=== PATIENT | female | born 1930 | race Caucasian/White ===

== ENCOUNTER 2016-11-14 10:14 | Inpatient (IN) ==
[2016-11-14] MEDS ORDERED: ASPIRIN PO STA (10:21)
[2016-11-14 11:15] LABS: BASO% 0.2 % (0.0-0.8); EOS# 0.19 X1000 (0.0-0.7); HEMATOCRIT 31.9 % (37.0-47.0); IMM GRAN# 0.04 X1000 (0.0-0.04); IMM GRAN% 0.6 % (0.0-0.5); LYMPH# 0.43 X1000 (1.2-3.4); LYMPH% 6.7 % (20.5-51.1); MANUAL DIFF NEEDED? NO; MCH 30.8 PG (27-31); MCHC 31.3 g/dL (33-37); MCV 98.2 FL (81-99); MONO# 0.15 X1000 (0.11-0.59); MONO% 2.3 % (1.7-9.3); MPV 11.4 FL (7.4-10.4); NEUT% 87.2 % (42.2-75.2); PLT 126 X1000 (130-400); RBC 3.25 XMIL (4.2-5.4)
[2016-11-14 11:21] LABS: INR 1.18; PROTIME 12.5 Seconds (9.2-11.7); PTT 23.8 Seconds (22.0-36.0)
[2016-11-14 11:26] LABS: ALBUMIN 3.8 g/dL (3.5-5.0); CALCIUM 9.6 mg/dL (8.8-10.2); MAGNESIUM 1.6 mg/dL (1.5-2.7); POTASSIUM 4.3 mmol/L (3.5-5.1); TOTAL BILIRUBIN 0.8 mg/dL (0.20-1.00)
[2016-11-14] MEDS ORDERED: NS 1,000 ML IV ONE ×3 (11:40→14:49)
[2016-11-14] MEDS ORDERED: LASIX IV ONE (12:07)
--- NOTE | 2016-11-14 13:24 | Diag Imaging Result Document ---
PROCEDURE NAME: CHEST-1 VIEW - 11/14/2016 PORTABLE CHEST: FINDINGS: Compared with 03/24/2016. Central venous catheter remains in place. There is stable cardiomegaly. There are apparent COPD changes. There is no dense consolidation, gross pulmonary edema, substantial pleural effusion, or pneumothorax identified. IMPRESSION: 1. Stable cardiomegaly. 2. Apparent COPD. 3. No other evidence of acute disease.
[2016-11-14] MEDS ORDERED: TYLENOL PO PRN (14:30)
[2016-11-14] MEDS ORDERED: ZOFRAN IV PRN (14:30)
[2016-11-14] MEDS ORDERED: DUONEB (A & A) INH PRN (14:46)
[2016-11-14] MEDS ORDERED: LOVENOX SUBQ SCH (15:00)
[2016-11-14] MEDS ORDERED: PATIENT'S OWN MED OPH SCH (15:00)
[2016-11-14] MEDS: DUONEB (A & A) INH SCH ×2 (15:00→21:07)
[2016-11-14 15:15] LABS: URINE MICRO REVIEW NEEDED? NO; URINE SOURCE CATH
[2016-11-14 15:22] LABS: BILIRUBIN URINE NEGATIVE (NEGATIVE); BLOOD URINE NEGATIVE (NEGATIVE); COLOR YELLOW; GLUCOSE URINE NEGATIVE (NEGATIVE); LEUKOCYTES URINE SMALL (NEGATIVE); NITRITE URINE NEGATIVE (NEGATIVE); PROTEIN URINE 70 mg/dL (NEGATIVE); SP GRAVITY URINE 1.012; TURBIDITY URINE HAZY (CLEAR); UROBILINOGEN URINE NORMAL (NORMAL)
[2016-11-14 15:24] LABS: ALLEN TEST YES; BE -3.6 mmoll (-3.0-3.0); BLOOD TYPE ARTERIAL; DRAW SITE R RADIAL; METHB 1.7 % (0.0-1.5); O2(CT) 15.8 mL/dL (15.0-23.0); PCO2(98.6) 24 mmHg (35-45); PO2(98.6) 74 mmHg (60-100); SAMPLE BLOOD; SAO2 98.6 % (95.0-100.0); THB 11.8 g/dL (11.5-17.4); pH(98.6) 7.49 (7.35-7.45)
[2016-11-14 15:24] LABS: UR EPITHELIAL CELLS <10 /HPF (<10); URINE BACTERIA 4+ /HPF; URINE CULTURE NEEDED? YES; URINE RBC <10 /HPF (<10)
[2016-11-14 15:25] LABS: MODALITY CANNULA
[2016-11-14] MEDS: OXY IR PO PRN ×2 (15:37→23:54)
--- NOTE | 2016-11-14 16:06 | HISTORY AND PHYSICAL ---
CHIEF COMPLAINT: Was really dyspnea. HISTORY OF PRESENT ILLNESS: The patient came in for evaluation. Her daughter is very involved and a very good historian. She states she has been in her usual state. She has been getting her outpatient chemo for her multiple myeloma and she has had treatment this week. Today she was complaining of shortness of breath. She could not get her words out. She just does not feel very comfortable, was just overall very ill appearing. She just could not catch her breath essentially. Again she is currently getting multiple myeloma treatment. She has had the diagnosis for 16 years. She has been getting intermittent chemo for the last several years and I think she is about to enter a study for treatment. There has not been any other major changes in her case now. Workup in the ER revealed BUN, creatinine of 40, 1.3, clinically appear dry but her BNP was elevated. Hemoglobin and hematocrit is 10 and 31 with platelets of 126,000. Her coagulations were negative including a negative D-dimer. Her chest x-ray was felt to be overall negative as well, COPD, cardiomegaly but nothing much else in that. PAST MEDICAL HISTORY: 1. Again the multiple myeloma. She has been getting treatment intermittently. 2. Paroxysmal atrial fibrillation. She is status post ablation. She is not on anticoagulation due to concern over bleeding risk with her concurrent diagnosis of pneumonia. 3. Hypothyroidism. 4. Hypertension. 5. Chronic pain disorder. PAST SURGICAL HISTORY: 1. She has had a hysterectomy. 2. Port placement. 3. She has had ablation. FAMILY HISTORY: Is positive for CAD, diabetes, colon cancer. ALLERGIES: Acetaminophen, hydrocodone, adhesive tape, I think she is allergic to [place] not Tylenol per se. REVIEW OF SYSTEMS: Otherwise negative times a 10 point review of systems. All other systems reviewed and are negative. MEDICATION LIST: Amlodipine 5 daily, docusate 300 daily, eye lubricant daily, fenofibrate 160 daily, iron 240 b.i.d., folic acid 400 daily, Lasix 40 daily, Atrovent, Synthroid 150 daily, Cozaar 50 daily, oxycodone 5 q.8, MiraLAX 17 daily, Micro-K 20 daily, Spiriva 18 daily, multivitamin daily. PHYSICAL EXAMINATION: VITAL SIGNS: Blood pressure is currently 131/85, heart rate of 89, respiratory 28, temperature degrees 99.2, 95% on 2 L. GENERAL: A well-developed female, appears to have increased work of breathing. HEENT: Patient presents with . CARDIOVASCULAR: Tachy. PULMONARY: Diminished at the bases but no rales or wheezing. GI: Soft, nontender, nondistended. Bowel sounds are positive. EXTREMITIES: No clubbing or cyanosis. LYMPHATICS: No peripheral edema. NEUROLOGICAL: Nonfocal. LABORATORY DATA: BUN and creatinine 40 and 1.3. D-dimer was negative. ASSESSMENT: An 86-year-old female who presents with shortness of breath. We are going to try to get her tuned up here a little bit. It is unclear what her 1st issue is although I think just looking at her she has respiratory distress seems to be the predominant issue. 1. Pulmonary. We will better evaluate for hypoxia with a blood gas. I am going to do a noncontrast CT of her chest. Despite her negative D-dimer I think I am going to get Dopplers just because she is at risk for DVT and we will evaluate accordingly. 2. Multiple myeloma aware. Will continue to monitor. Consult Dr. Trujillo. 3. Paroxysmal atrial fibrillation. She appears to be normal sinus rhythm so I am not really sure what that has to do with her current issues. Her last echocardiogram was in 2014 here so she may need to get another study and her ejection fraction was normal at that time. Her BNP is very elevated today and it is a difficult process because her oral mucous membranes are dry but her BNP is elevated. She does not have pulmonary edema at that time. We also going to pursue echocardiogram just to better evaluate for any heart failure issues and check serial cardiac enzymes. DISPOSITION: Pending her above workup. cc: Osmel Escalera MD
--- NOTE | 2016-11-14 16:29 | Diag Imaging Result Document ---
PROCEDURE NAME: CT THORAX W/O CONTRAST - 11/14/2016 CT THORAX WITHOUT CONTRAST: FINDINGS: No contrast administered per request of the referring provider. A dose reduction protocol was used. No comparison CT thorax is available. There is cardiomegaly. There are right lower lobe calcified granulomas and calcified right hilar mediastinal lymph nodes from old granulomatous disease. There is apparent mild scarring at the mid perihilar mid to upper right thorax. There is no consolidation or pneumothorax identified. There is no substantial pleural effusion identified. There are no emphysematous bulla identified. There are no abnormally enlarged mediastinal lymph nodes identified. There is tortuosity of the descending aorta noted. Included sections of upper abdomen show mildly prominent spleen, although the entire spleen is not included on the exam. There are multiple splenic granulomas from old granulomatous disease noted. IMPRESSION: 1. Cardiomegaly. Apparent mild scarring at perihilar mid to upper thorax on the right. 2. No pneumonia. No pneumothorax. No substantial pleural effusion. 3. Mild prominence of the visualized portion of the spleen.
[2016-11-14] MEDS: COLACE PO SCH (22:07)
[2016-11-14] MEDS: FERGON PO SCH (22:07)
[2016-11-14] MEDS ORDERED: VANCOMYCIN IV PER PHARMACY MISC SCH (22:45)
[2016-11-14] MEDS ORDERED: VANCOMYCIN 1,650 MG in NS 250 ML IV ONE (23:00)
[2016-11-15] MEDS: DUONEB (A & A) INH SCH ×4 (03:39→21:34)
--- NOTE | 2016-11-15 05:36 | EKG Report ---
Test Performed on : 11/14/2016 3:07:40 PM Test Reason : dyspnea Blood Pressure : / mmHG Vent. Rate : 084 BPM Atrial Rate : 084 BPM P-R Int : 234 ms QRS Dur : 112 ms QT Int : 406 ms P-R-T Axes : 072 -12 027 degrees QTc Int : 479 ms Sinus rhythm. with 1st degree AV block. Incomplete right bundle branch block Borderline ECG When compared with ECG of 14-NOV-2016 10:24, (Unconfirmed) premature ventricular complexes. are no longer present premature supraventricular complexes. are no longer present T wave inversion no longer evident in Inferior leads T wave inversion no longer evident in Anterolateral leads QT has lengthened Confirmed by Paulie NUNEZ, Red Rothman ([id number]) on 11/15/2016 9:00:37 AM
--- NOTE | 2016-11-15 05:51 | EKG Report ---
Test Performed on : 11/14/2016 10:24:01 AM Test Reason : Re-Ordered/CP Blood Pressure : / mmHG Vent. Rate : 108 BPM Atrial Rate : 108 BPM P-R Int : 322 ms QRS Dur : 102 ms QT Int : 308 ms P-R-T Axes : 064 -04 258 degrees QTc Int : 412 ms Sinus tachycardia. with 1st degree AV block. with premature supraventricular complexes. and with occ asional premature ventricular complexes. RSR' or QR pattern in V1 suggests right ventricular conduction delay ST \T\ T wave abnormality, consider inferior ischemia ST \T\ T wave abnormality, consider anterolateral ischemia Abnormal ECG When compared with ECG of 27-JUL-2016 13:55, Significant changes have occurred Unconfirmed Result
[2016-11-15 06:25] LABS: CALCIUM 8.1 mg/dL (8.8-10.2); POTASSIUM 3.8 mmol/L (3.5-5.1)
[2016-11-15 06:35] LABS: HEMATOCRIT 24.5 % (37.0-47.0); HEMOGLOBIN 7.8 g/dL (12.0-16.0); MCH 31.2 PG (27-31); MCHC 31.8 g/dL (33-37); MPV 11.7 FL (7.4-10.4); RBC 2.5 XMIL (4.2-5.4)
[2016-11-15] MEDS ORDERED: COZAAR PO SCH (09:00)
[2016-11-15] MEDS: MIRALAX PO SCH (09:00)
[2016-11-15] MEDS ORDERED: LASIX PO SCH (09:00)
[2016-11-15] MEDS: LOFIBRA PO SCH (09:01)
[2016-11-15] MEDS: SYNTHROID PO SCH (09:01)
[2016-11-15] MEDS: FERGON PO SCH ×2 (09:01→22:22)
[2016-11-15] MEDS: FOLIC ACID PO SCH (09:02)
[2016-11-15] MEDS: OCUVITE LUTEIN & ZEAXANTHIN PO SCH (09:02)
[2016-11-15] MEDS: NORVASC PO SCH (09:02)
[2016-11-15] MEDS: OXY IR PO PRN ×2 (09:15→19:46)
[2016-11-15 13:37] LABS: IRON SATURATION 9 %; TIBC 240 ug/dL; TOTAL IRON 21 ug/dL (49-151); UNBOUND IRON 219 ug/dL (112-346)
[2016-11-15] MEDS ORDERED: ROCEPHIN 1 GM/NS 1 GM/50 ML IVPB IV SCH (14:45)
[2016-11-15] MEDS: MORPHINE IV PRN ×2 (15:05→22:22)
--- NOTE | 2016-11-15 16:12 | PROGRESS NOTE ---
DATE: 11/15/2016 SUBJECTIVE: Ms. Bains is an 86-year-old female with a history of multiple myeloma, PAF, and others, who was admitted yesterday for worsening dyspnea and overall weakness. A chest CT done yesterday was unrevealing, overnight her hemoglobin and hematocrit has dropped from 10 to 7.8, and her renal function has worsened slightly. She also was noted to have gram-negative bacteria in her urine and gram-positive bacteria in her blood. Appropriate antibiotics have been started. Subjectively, she states that her lower back is hurting quite a bit and she is continue to have dyspnea, she denies any new. On physical exam she is quite a bit dyspneic. Multiple studies have been ordered and are currently pending. Her vital signs are stable. No acute events. She has been seen by Dr. Trujillo, her oncologist. OBJECTIVE: VITAL SIGNS: Blood pressure 133/51. Heart rate 56. Respiratory rate 17. O2 sat 100% on 3 liters nasal cannula. Temperature 98.5. GENERAL: This is an overweight, 86-year-old female lying on the hospital bed, mildly dyspneic. HEENT: Head is atraumatic and normocephalic. Pupils are equal, round, and reactive to light. Conjunctivae pale. Oral mucosa is dry. Oropharynx is clear. There is no JVD. CHEST: Clear to auscultation. Chest rises symmetrically. GI: Soft, nondistended, nontender. Bowel sounds positive. EXTREMITIES: No edema. Pulses are palpable. LABORATORY: WBC 8.57, hemoglobin 7.8, hematocrit 24.5, platelet count 111. Sodium 138, potassium 3.8, chloride 103, CO2 18, anion gap 17, BUN 40, creatinine 1.5, glucose 90, calcium 8.1. Iron 21, TIBC 240, percent sat 9, unsaturated iron binding 219, ferritin 929. Troponin negative. Blood cultures positive, gram-positive cocci and urine is gram-negative rods. ASSESSMENT AN PLAN: 1. Dyspnea: Likely multifactorial, CT of the chest did not show anything acute. We are checking echocardiogram and also giving her blood for her anemia. We will treat her underlying metabolic issues and see if this helps her with her breathing, she is maintaining adequate O2 sats. 2. Worsening anemia: Presumed gastrointestinal loss in nature, oncology is following, but we are also going to consult with gastroenterology and transfuse her 1 unit for now. 3. Gram-positive cocci bacteremia: Source unknown at this time, most obvious source would be her port. We are also going to check a lumbar spine CT as she is complaining of fairly severe lower back pain, which is worse than her normal pain. Dr. Munoz has been consulted and we will continue vancomycin and Rocephin. 4. Urinary tract infection: Rocephin has been added. 5. Multiple myeloma: Per Dr. Yazmin Trujillo, appreciate the input. 6. Back pain: We have added IV pain medication and we are going to check a CT of the lumbar spine to see if there is any abscess, et cetera. 7. YOLANDA: Likely volume mediated. Will continue with IV fluids and discontinue any nephrotoxic medications. If no improvement in the morning we will pursue more extensive work-up. 8. Deep venous thrombosis prophylaxis: We will change to SCDs in light of her worsening anemia and presumed gastrointestinal bleed. Of note, the patient has changed her DNR status to DNR level 1. Dictated by JASVIR Pedro for Osmel Escalera MD cc: JASVIR Pedro MD pt examined, port is likely source, per family they have been difficulty with the port; and have had to use activase recently, so there is suspicion of port infection, will await cultures and repeat them APENOT MTDD
[2016-11-15] MEDS ORDERED: NS 500 ML ONE (18:24)
[2016-11-15] MEDS: NS 500 ML IV SCH (18:35)
[2016-11-15] MEDS ORDERED: CUBICIN (FOR INPATIENT USE) 500 MG in NS 100 ML IV SCH (20:00)
--- NOTE | 2016-11-15 21:19 | ECHO REPORT ---
ORDER DATE: 11/15/2016 INTERPRETING PHYSICIAN: Dr. Velasquez REQUESTING PHYSICIAN: CLINICAL INDICATIONS: An 86-year-old female with stroke, hypertension, atrial tachycardia. M-MODE MEASUREMENTS: Right ventricle: 4.0 cm. Left ventricle end diastole: 5.4 cm. Left ventricle end systole: 3.5 cm. Posterior wall: 0.8 cm. Interventricular septum: 1.0 cm. Left atrium: 4.8 cm. Aortic root: 3.7 cm. SUMMARY OF 2-DIMENSIONAL IMAGING: The left ventricle is normal in size and function. Ejection fraction estimated at 60-65%. The right ventricle is significantly enlarged and it shows mildly decreased systolic function. The tricuspid valve shows a moderate to moderately severe degree of regurgitation. The inferior vena cava is borderline enlarged. The estimated pulmonary artery systolic pressure is in the range of 67-72 mmHg, indicating significant pulmonary hypertension. The pulmonic valve shows a mild degree of regurgitation. The pulmonary diastolic pressure is estimated at 22 mmHg. The mitral valve shows a mild degree of regurgitation. Pulse wave Doppler of mitral inflow is normal. Tissue Doppler of septal and lateral mitral annulus averages 7 cm per second. There is no definite significant diastolic dysfunction. Pulse wave Doppler of pulmonary venous flow is normal. The aortic valve has 3 cusps. Color flow mapping indicates a mild degree of aortic regurgitation. There is no aortic stenosis. There is no pericardial effusion, masses or thrombus. The left atrium appears to be significantly enlarged. The right atrium is also significantly enlarged. IMPRESSION: In summary, this study shows: 1. No left ventricular systolic function. 2. Moderately to significantly enlarged right ventricle. Mildly decreased function. 3. Biatrial enlargement of a moderate to significant degree. 4. Mild degree of aortic and mitral regurgitation. 5. No diastolic dysfunction. 6. Moderate pulmonary hypertension estimated to be in the range of 72/22 mmHg. 7. There is a moderately severe degree of tricuspid regurgitation and a mild degree of pulmonic regurgitation. Clinical correlation recommended. cc: Norberto Velasquez MD
--- NOTE | 2016-11-15 21:43 | CONSULTATION ---
DATE OF CONSULTATION: 11/15/2016 REASON FOR CONSULTATION: Patient known multiple myeloma. HISTORY OF PRESENT ILLNESS: Ms. Bains is an 86-year-old female, who is known to us as we are currently treating her for multiple myeloma, who presented to [facility] Emergency Department complaining of new onset shortness of breath, as well as the generally feeling unwell. The patient is currently receiving Kyprolis with us at [facility]. Her last dose was 11/11/2016. She has recently had some slow progression of her disease and there are plans to try to initiate Pomalyst here in the future. Patient is not currently taking the Pomalyst. The patient has multiple medical problems. She has had a couple different lines of therapy prior to her current Kyprolis. Patient does have some medication intolerance to previous treatments. At this time, the patient is lying in hospital bed with her son by the bedside. She is in no acute distress. PAST MEDICAL HISTORY: 1. Multiple myeloma, currently on Kyprolis. 2. Paroxysmal atrial fibrillation, status post ablation. 3. Hypothyroidism. 4. Hypertension. 5. Chronic pain. 6. Anxiety and depression. PAST SURGICAL HISTORY: 1. Patient status post hysterectomy. 2. Status post port placement on the right. 3. Previous ablation, as per above. REVIEW OF SYSTEMS: As per the HPI. All else is either negative or noncontributory. FAMILY HISTORY: Positive for coronary artery disease, diabetes, and colon cancer. PHYSICAL EXAMINATION: Vital Signs: Temperature 98.5 degrees, heart rate 69, respirations 18, blood pressure 133/51. O2 saturations at 99% on 3 L nasal cannula. General: Elderly female, lying in the hospital bed in no acute distress. Her son is by the bedside. Head: Appears to be normocephalic, atraumatic. Eyes: Pupils equal, round, and reactive. Ears, nose, throat, neck, and mouth: Oral mucosa appears to be normal. Trachea is midline. Gross auditory acuity is intact. Cardiovascular: S1-S2 heard. Regular rate and rhythm. Respiratory: Coarse breath sounds bilaterally, but otherwise clear to auscultation. Gastrointestinal: Abdomen is soft and nondistended. Positive bowel sounds. Musculoskeletal: No obvious bony abnormalities noted. Extremities: Patient does not have any bilateral lower extremity edema. No upper extremity edema as well. Neurologic: Patient is alert and oriented. No focal motor deficits are noted. ASSESSMENT AND PLAN: 1. Multiple myeloma. The patient is currently receiving Kyprolis, with her last dose being on 11/11/2016. There is discussion of initiating Pomalyst, but this has of yet to be started. Treatment will be on hold while the patient's current issues resolve. 2. Anemia. This is worse today. Her hemoglobin is down to 7.8. She has symptoms. We will go ahead and give her 1 unit of packed red blood cells today. Risks, benefits, and alternatives were discussed with the patient and she agrees to proceed. The patient's iron and occult stool have already been ordered to be checked. 3. Shortness of breath. CT scan was negative. Electrocardiogram was normal sinus rhythm. Continue current management. Continue current workup. Bilateral lower extremity Doppler's are currently pending, as is the patient's echocardiogram. 4. Pain. Continue current management as per the hospitalist. She is taking oxycodone IR. I want to thank you for this consult and allowing us to participate in Ms. Bains's care. We will continue to follow along and adjust our treatment plan per her hospital course. Dictated by LEANNA Calderon for Yazmin Trujillo MD cc: Yazmin Trujillo MD
[2016-11-15] MEDS: MAXIPIME 1 GM/NS 1 GM/50 ML IVPB IV SCH (22:17)
[2016-11-15] MEDS: COLACE PO SCH (22:22)
--- NOTE | 2016-11-15 23:11 | CONSULTATION ---
DATE OF CONSULTATION: 11/15/2016 CONCLUSION: The patient has a gram-positive coccal bacteremia. Because both of the blood cultures are positive, to me that means that she truly has a bacteremia and not a contaminated culture. I agree with Dr. Escalera, that the source of this may be the patient's Port-A-Cath. Patient also has a urinary tract infection, but whether it or the bacteremia or both contributed to the patient's reason for coming in the hospital with nausea, shaking and dyspnea is responsible for it, is uncertain to me at this time. The patient may have an immunoglobulin deficiency, which can be seen with multiple myeloma. RECOMMENDATIONS: I have switched the patient from vancomycin to daptomycin because the patient has some renal insufficiency, and she also has decreased hearing. Also, I have switched the patient from Rocephin to cefepime. I have ordered an echocardiogram to look for the possibility of vegetations. I have ordered immunoglobulin levels. DISCUSSION: The patient had a 2-day history of nausea and shaking and dyspneic. She was eventually admitted to the hospital. Both blood cultures are growing gram positive cocci, and the urine is growing a gram-negative sujey. The patient's creatinine is 1.5. The GFR is 33. Liver function studies are normal. CBC shows a white count of 8,570, hemoglobin 7.8, and platelet count of 110,000. The patient now is feeling much better. She is not having nausea, and she is not shaking, and she is less dyspneic. The patient's CT scan of the chest showed no pneumonia. There was some mild scarring on the right side. Also, there was some mild prominence of the spleen. PAST MEDICAL HISTORY/REVIEW OF SYSTEMS: Eyes and ears: The patient has decreased hearing and vision. Neck: No stiffness. Respiratory: She was having dyspnea before coming in, but that is getting better. Cardiovascular: No chest pain or palpitations. GI: The patient was nauseated, but she really did not vomit. She was not having diarrhea. Genitourinary: No dysuria or flank pain. Endocrine: The patient does not have diabetes or thyroid disease. The remainder of the patient's review of systems was completed and was negative. 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 She has had a hysterectomy. PREVIOUS HOSPITALIZATIONS AND OPERATIONS: She has had labor and deliveries, 3 miscarriages, a hysterectomy, parathyroidectomy, bilateral carpal tunnel surgery, bilateral foot surgery, placement of a left-sided Port-A-Cath and placement of a cardiac loop monitor. MEDICAL DISEASES: Positive for hypertension and multiple myeloma. INFECTIOUS DISEASE HISTORY: Positive for pneumonia and UTI. FAMILY HISTORY: Positive for cancer, diabetes mellitus, hypertension, and myocardial infarction. SOCIAL HISTORY: [place] She does not smoke or drink. She does not abuse drugs. ALLERGIES: The patient does have allergies to include acetaminophen, hydrocodone, adhesive tape and silver. HOME MEDICATIONS: Include: Folic acid, ferrous gluconate, fenofibrate, Docusate, amlodipine, furosemide, losartan, Synthroid, Atrovent, potassium, MiraLAX, oxycodone, vitamins and Spiriva inhaler. PHYSICAL EXAMINATION: Vital Signs: Temperature is 98.8, pulse 62, respirations 17, blood pressure 142/61. Generally: This is a chronically ill-appearing, elderly female. She is in no acute distress at this time. HEENT: Head eyes, ears, nose, and throat: She can hear my spoken words and see near objects. No drainage noted from the nose or ears. Neck: No meningismus. Lungs: Clear to auscultation. Cardiovascular: Heart rate is regular. Abdomen: Soft and nontender. Neurologic: Patient is alert. Extremities: She can move her extremities, but she is weak. There is no tremor. Neurologic: Her memory as regarding her medical history is decreased. Integument: No rash noted. Thorax: The patient has a has a Port-A-Cath present on the left side. The site is not erythematous or swollen. Thank you for the consult. cc: Matt Munoz MD
[2016-11-16] MEDS: DUONEB (A & A) INH SCH ×4 (02:50→19:26)
[2016-11-16] MEDS: MAXIPIME 1 GM/NS 1 GM/50 ML IVPB IV SCH (06:06)
[2016-11-16 06:46] LABS: HEMATOCRIT 27.5 % (37.0-47.0); HEMOGLOBIN 8.6 g/dL (12.0-16.0); MCH 30.6 PG (27-31); MCHC 31.3 g/dL (33-37); MCV 97.9 FL (81-99); MPV 11.6 FL (7.4-10.4); RBC 2.81 XMIL (4.2-5.4)
[2016-11-16 06:47] LABS: CALCIUM 8.1 mg/dL (8.8-10.2); POTASSIUM 3.8 mmol/L (3.5-5.1)
--- NOTE | 2016-11-16 07:28 | Diag Imaging Result Document ---
PROCEDURE NAME: LUMBAR SPINE W/O CONTRAST - 11/15/2016 CT LUMBAR SPINE: 11/15/2016. A CT dose reduction protocol was used. COMPARISON: Lumbar spine x-rays, 07/23/2013. FINDINGS: There is grade 1 anterolisthesis of L3 on L4 by about 4 mm similar to prior. Stable severe, diffuse facet degeneration, worse at the lower lumbar spine. Grossly stable, multilevel degenerative disk disease with osteophyte formation. No fracture or subluxation. Soft tissues are clear. At L3-L4, there is moderate to severe central canal stenosis and moderate bilateral neural foraminal stenosis. At L4-L5, there is moderate central canal stenosis. There is severe left and moderate right neural foraminal stenosis. At L5-S1, there is mild central canal stenosis. There is moderate left neural foraminal stenosis. There is degeneration of the sacroiliac joints. IMPRESSION: Grossly stable lumbar spondylosis. No acute-appearing findings. [facility]
[2016-11-16] MEDS: FERGON PO SCH ×2 (09:35→20:52)
[2016-11-16] MEDS: ROCEPHIN 2 GM/NS 2 GM/50 ML IVPB IV SCH (09:35)
[2016-11-16] MEDS: NORVASC PO SCH (09:35)
[2016-11-16] MEDS: SYNTHROID PO SCH (09:35)
[2016-11-16] MEDS: FOLIC ACID PO SCH (09:36)
[2016-11-16] MEDS: OCUVITE LUTEIN & ZEAXANTHIN PO SCH (09:36)
[2016-11-16] MEDS: LOFIBRA PO SCH (09:36)
[2016-11-16] MEDS: MIRALAX PO SCH (09:36)
[2016-11-16] MEDS: NS 500 ML IV SCH (09:49)
--- NOTE | 2016-11-16 11:15 | PROGRESS NOTE ---
DATE: 11/16/2016 PRESENT ILLNESS: The patient has a group B streptococcal bacteremia. It appears that it is coming from her Port-A-Cath in view of the fact that the Port-A-Cath does not work well. She also has an E. coli urinary tract infection which obviously is not the cause of her bacteremia; it may be asymptomatic. MEDICATIONS: Currently the patient is on a combination of daptomycin and cefepime. PHYSICAL EXAMINATION: Vital Signs: Temperature is 98.8 degrees, pulse 63, respirations 18, blood pressure 140/64. General: This is a chronically ill-appearing, elderly female. She is in no acute distress. Lungs: Clear to auscultation. Cardiovascular: Regular heart rate. Chest: The patient's Port-A-Cath is on the left side. The site is not swollen, red, or draining. Abdomen: Soft and nontender. LAB AND X-RAY: The patient's echocardiogram showed no vegetation. The urine is growing E. coli. The blood is growing group B strep. The patient's CBC shows a white count of 6,010, hemoglobin 8.6, platelet count is 121,000. Creatinine is 1.2 and the GFR is 43. ASSESSMENT AND PLAN: I am going to switch the patient to Rocephin which should cover both organisms well. Also I think the patient's Port-A-Cath needs to be removed and I am going to be placing a consult with 1 of the surgeons to remove it. I will need to treat the patient for a total of 14 days after her blood cultures turn sterile. The patient's comorbidity is that she is very elderly. She has multiple myeloma. She may have low immunoglobulin levels because of the myeloma and I have ordered the immunoglobulin levels to be drawn. The test is done at [facility]. cc: Matt Munoz MD
[2016-11-16] MEDS ORDERED: MORPHINE IV ONE (15:30)
--- NOTE | 2016-11-16 15:52 | CONSULTATION ---
DATE OF CONSULTATION: 11/16/2016 REASON FOR CONSULTATION: Anemia. HISTORY OF PRESENT ILLNESS: This is an 86-year-old, white female, who has followed with Dr. Trujillo for multiple myeloma. She was diagnosed 16 years ago. She has been receiving chemotherapy since diagnosis. There are plans to add another chemotherapy drug, but the patient has not been started on that. She reports onset of fever, shaking, and dyspnea. She was admitted to the hospital for further evaluation. On evaluation, she was found to have gram- positive bacteremia. She has been seen by Dr. Munoz. She was also diagnosed with a urinary tract infection. Her anemia had worsened since admission, and she received a unit of packed red blood cells. GI was consulted to assess for possible GI cause of worsening anemia. The patient denies any visible blood in the stool or black stools. She denies hematemesis. She does report occasional nausea and uses Zofran at home as needed. She denies abdominal pain. She reports occasional constipation. She usually takes a stool softener daily and adds MiraLAX when needed. Since admission, she has not had a bowel movement. There is order for Hemoccult stool once she has a bowel movement. She reports seeing Dr. Garner in the past. She has had an EGD and colonoscopy both over 5 years ago. She reports a diagnosis of hiatal hernia in the past. With her dysphagia, she states she gets choked on some pills and has to take her pills 1 at a time. She also occasionally will get choked on food. She denies reflux or heartburn and, as noted above, she has not noted any blood in the stool or black stools. No hematemesis. PAST MEDICAL HISTORY: 1. Multiple myeloma. Currently receiving chemotherapy, followed by Dr. Yazmin Trujillo. 2. Paroxysmal atrial fibrillation. History of ablation. 3. Hypothyroidism. 4. Hypertension. 5. Chronic pain syndrome. PAST SURGICAL HISTORY: Hysterectomy, port placed approximately 5 years ago. She has had a cardiac ablation in the past. ALLERGIES: Acetaminophen causing rash/hives. Hydrocodone rash/hives, adhesive/ hives, Tegaderm/hives. HOME MEDICATION: 1. Folic acid 400 g daily. 2. Iron 240 mg twice daily. 3. Fenofibrate 160 mg daily. 4. Eye drops as directed. 5. Stool softener 300 mg every night. 6. Amlodipine 5 mg daily. 7. Furosemide 40 mg daily. 8. Cozaar 50 mg daily. 9. Synthroid 150 mcg daily. 10. Atrovent as directed. 11. Potassium 20 mEq daily. 12. MiraLAX 17 g as needed. 13. Oxycodone 5 mg every 8 hours as needed. 14. Vitamin tablets daily. 15. Spiriva inhaler daily. 16. Vitamin B complex daily. SOCIAL HISTORY: She denies tobacco or alcohol use. FAMILY HISTORY: Noted for coronary artery disease, diabetes, and colon cancer. REVIEW OF SYSTEMS: Per HPI. PHYSICAL EXAMINATION: Vital Signs: Temperature 98.8 degrees, pulse 70, respirations 16, blood pressure 140/64. Generally, the patient is awake, alert, in no acute distress. HEENT: Normocephalic, atraumatic. Pupils equal, round, reactive to light. Sclerae nonicteric. Cardiovascular: S1, S2. Sinus rhythm on EKG with first-degree AV block. Respiratory: Coarse breath sounds. Otherwise clear. Cardiovascular: Soft positive bowel sounds. Nontender. Extremities: No lower extremity edema noted. LABORATORY RESULTS: Hematology: White count 6.01, hemoglobin 8.6, hematocrit 27.5, MCV 97.9, platelet 121,000. Coagulation ProTime 12.5. INR 1.18, PTT 23.8. D-dimer 0.39. Chemistry: Sodium 137, potassium 3.8, chloride 103, CO2 of 20. BUN 32, creatinine 1.2, glucose 100. Iron 21. Ferritin 929. AST 39, ALT 17. ASSESSMENT AND PLAN: 1. Multiple myeloma followed by Dr. Yazmin Trujillo; receiving chemotherapy. 2. Anemia which has worsened since admission. 3. Gram-positive bacteremia. 4. Urinary tract infection. 5. Shortness of breath, improving. 6. Pain, improved with medication. PLAN: Continue supportive care. The patient and family have mentioned that she is to have her Port-A-Cath removed due to gram positive bacteremia. She is on antibiotics and is followed by Dr. Munoz. She has had no overt GI symptoms of bleeding. We will wait on Hemoccult stool results. We will continue to follow hemoglobin and hematocrit. Monitor for any active bleeding. Further plans will be made regarding the need for any endoscopies once some of her other problems including bacteremia and UTI have improved. She has plans to have the port removed tomorrow. If Hemoccult stool test is positive, will most likely proceed with an EGD first and then further plans will be made as needed. I have discussed this plan with the patient and her family. At present time, she wants to hold off the EGD procedure until her other tests are finished. I have also discussed this case with Dr. Mena. Further plans will be made by him. Thank you for this consultation. Dictated by JASVIR Vaughan for Luis Mena MD cc: JASVIR Patino MD [facility]
[2016-11-16] MEDS ORDERED: MORPHINE IM ONE (15:55)
[2016-11-16] MEDS ORDERED: MORPHINE ONE (15:58)
[2016-11-16] MEDS ORDERED: MARCAINE 0.25% PF/EPI 1:200,000 ONE (16:46)
[2016-11-16] MEDS ORDERED: XYLOCAINE 1%/EPI 1:100,000 ONE (16:46)
--- NOTE | 2016-11-16 18:08 | Extremity Venous Study ---
PROCEDURE NAME: Venous U/S Bilateral Legs - 11/15/2016 INDICATION: Shortness of breath, pain and edema of legs with negative D-dimer. REQUESTING PHYSICIAN: Dr. Escalera. INDIRECT SALES REPRESENTATIVE: Zander. FINDINGS: All deep and superficial veins in the bilateral lower extremities were visualized along their course. All veins were compressible, forward flow. No evidence intraluminal thrombus. SUMMARY: No deep or superficial venous thrombosis seen in bilateral lower extremities. cc: Tesfaye Deluna MD
[2016-11-16] MEDS ORDERED: ZOFRAN ONE (18:11)
--- NOTE | 2016-11-16 19:05 | OPERATIVE NOTE ---
PROCEDURE DATE: 11/16/2016 PREOP DIAGNOSES: 1. Strep bacteremia. 2. Probable Port-A-Cath infection. 3. Multiple myeloma. 4. Hypertension. POSTOP DIAGNOSES: 1. Strep bacteremia. 2. Probable Port-A-Cath infection. 3. Multiple myeloma. 4. Hypertension. PROCEDURE: Excision of Port-A-Cath. SURGEON: Luisito Brown MD. ANESTHESIA: General. ESTIMATED BLOOD LOSS: 10 mL. COMPLICATIONS: None apparent. FINDINGS: There was no gross pus around the Port-A-Cath. TECHNIQUE: Initially I attempted to remove this port at the bedside. I prepped her skin with chlorhexidine, 1% lidocaine was used to anesthetize the skin over the port. Incision was made with 11 blade. Dissection carried down through the subcutaneous tissue and the fibrous capsule around the port sharply with scissors and the knife. The port was excised from the surrounding fibrous tissue completely. Upon retraction of the catheter there was a fibrous rind around the catheter. I freed this up sharply. However the port tube in the catheter would not give and release and be removed. I made another incision below the left clavicle and cut down on the catheter again. I freed up more of the fibrous capsule around the catheter but it appeared to be stuck more proximal below the pectoralis muscle and clavicle. At this point, rather than risk breaking the catheter I decided to go ahead and take to the operating room. I put a clamp on the catheter and closed the skin temporarily with running 3-0 Polysorb. In the operating room she was placed supine on the table. General anesthesia was induced. She was prepped and draped in sterile fashion. The port was removed with scissors. I ran a glide wire through the catheter and fluoroscopy confirmed the wire to be in the right atrium. The catheter had no kink throughout its course. I removed the wire and replaced the clamp on the catheter. I then cut down on top of the muscle and subcutaneous tissue several centimeters and continued doing this and gentle firm retraction on the catheter and finally the catheter gave way and was completely removed. Some subcutaneous bleeding was controlled with cautery. The wound was irrigated with saline and then I closed both incisions with interrupted subcutaneous 3-0 Polysorb and a running 4-0 subcuticular Monocryl then Steri-Strips. There were no apparent complications. She was transferred to the recovery room in stable condition. cc: Luisito Brown MD
[2016-11-16] MEDS: COLACE PO SCH (20:52)
[2016-11-16] MEDS: PERIDEX MT SCH (20:53)
[2016-11-16] MEDS: OXY IR PO PRN (21:23)
[2016-11-16] MEDS ORDERED: VANCOMYCIN 1,450 MG in NS 250 ML IV SCH (23:00)
[2016-11-16] MEDS: MORPHINE IV PRN (23:26)
--- NOTE | 2016-11-17 00:57 | PROGRESS NOTE ---
DATE: 11/17/2016 SUBJECTIVE: The patient still feels weak. OBJECTIVE: vital signs: Blood pressure 140/63, heart rate is 98, 97% on 2 L. General: Clinically, she is stabilizing. PROBLEM LIST: 1. Staphylococcus bacteremia. We will continue empiric antibiotics. ID is been consulted. Likely a port infection. Plan for taking the port out today. 2. UTI, appears to be stable. Continue empiric antibiotics. 3. Anemia, rule out GI bleed. Continue to follow hemoglobin and hematocrit. Continue proton pump inhibitor and follow. 4. Multiple myeloma with back pain. We will continue to follow. Her plain films are negative. cc: Osmel Escalera MD
[2016-11-17] MEDS: DUONEB (A & A) INH SCH ×4 (03:09→21:05)
[2016-11-17] MEDS: NS 500 ML IV SCH ×3 (06:06→17:00)
[2016-11-17 06:42] LABS: HEMATOCRIT 28.9 % (37.0-47.0); HEMOGLOBIN 8.9 g/dL (12.0-16.0); MCH 30.1 PG (27-31); MCHC 30.8 g/dL (33-37); MCV 97.6 FL (81-99); MPV 11.1 FL (7.4-10.4); RBC 2.96 XMIL (4.2-5.4)
[2016-11-17 07:14] LABS: CALCIUM 8.6 mg/dL (8.8-10.2); POTASSIUM 3.9 mmol/L (3.5-5.1)
[2016-11-17] MEDS ORDERED: QUELICIN (DOSE) ONE (08:29)
[2016-11-17] MEDS ORDERED: ZOFRAN ONE (08:29)
[2016-11-17] MEDS ORDERED: XYLOCAINE-MPF 2% ONE (08:29)
[2016-11-17] MEDS ORDERED: ANESTHESIA PB SET 88 IN 5742 ONE (08:29)
[2016-11-17] MEDS ORDERED: LR 1,000 ML ONE (08:29)
[2016-11-17] MEDS: ROCEPHIN 2 GM/NS 2 GM/50 ML IVPB IV SCH (09:50)
[2016-11-17] MEDS: OCUVITE LUTEIN & ZEAXANTHIN PO SCH (09:53)
[2016-11-17] MEDS: SYNTHROID PO SCH (09:53)
[2016-11-17] MEDS: FOLIC ACID PO SCH (09:53)
[2016-11-17] MEDS: MIRALAX PO SCH (09:53)
[2016-11-17] MEDS: PERIDEX MT SCH ×2 (09:53→22:43)
[2016-11-17] MEDS: FERGON PO SCH ×2 (09:53→22:43)
[2016-11-17] MEDS: LOFIBRA PO SCH (09:53)
[2016-11-17] MEDS: NORVASC PO SCH (10:00)
--- NOTE | 2016-11-17 13:40 | Diag Imaging Result Document ---
PROCEDURE NAME: FLUROSCOPY - C-ARM - 11/16/2016 LIMITED SPOT FLUOROSCOPIC IMAGE OF THE UPPER LEFT CHEST: COMPARISON: None available. FINDINGS: A limited single spot fluoroscopic image was provided during a reported port removal by Dr. Luisito Brown. On this single image, what appears to be part of the port tubing is identified. IMPRESSION: As above. Please correlate with live fluoroscopic imaging.
--- NOTE | 2016-11-17 16:31 | PROGRESS NOTE ---
DATE: 11/17/2016 PRESENT ILLNESS: The patient is being treated for a streptococcal bacteremia and an Escherichia coli urinary tract infection. The patient yesterday had her Port-A-Cath removed. MEDICATIONS: The patient is on Rocephin is being given in a dose of 2 g IV daily.' PHYSICAL EXAMINATION: Vital Signs: Temperature is 98.3 degrees, pulse 81, respirations 18, blood pressure 109/53. General: This is an ill-appearing, elderly female. She is in no acute distress. Chest: The site on the left chest where the Port-A-Cath was removed is slightly swollen and erythematous and it is tender. Lungs: Clear to auscultation. Cardiovascular: Regular heart rate. Abdomen: Soft and nontender. LAB AND X-RAY: There is no new x-ray today. 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 The IgA level is 13, IgG is 1763. Creatinine is 1.0. GFR is 53. CBC shows a white count of 4060, hemoglobin 8.9, and platelet count 137,000. I do not see where there any cultures from the Port-A-Cath. ASSESSMENT AND PLAN: The patient is being treated for streptococcal bacteremia and an Escherichia coli urinary tract infection. She is receiving Rocephin which I will continue. I have ordered repeat blood cultures tomorrow and if they become sterile then we will have to somehow find an IV that can last for while so that we can continue her antibiotics, and also we will need to have another Port-A-Cath put in because she is going to be expected to undergo chemotherapy. As regards the immunoglobulin levels, the IgG is very high, therefore she does not need gammaglobulin infusions. Unfortunately the IgA level is very low and there is no replacement product for a low IgA level. COMORBIDITIES: Include that she is very elderly, she also has multiple myeloma, and unfortunately she has an IgA level which is very low. cc: Matt Munoz MD
[2016-11-17] MEDS ORDERED: FLEET ENEMA PR ONE (17:03)
--- NOTE | 2016-11-17 19:00 | PROGRESS NOTE ---
DATE: 11/17/2016 SUBJECTIVE: The patient is feeling well. She complains of having no bowel movement and having some abdominal discomfort. She has not had a bowel movement since admission. OBJECTIVE: Vital signs: Blood pressure is 109/53, pulse of 81, respirations 16, temperature 98.3 degrees, saturations of 91% to 92% on 2 L. General Appearance: Morbidly obese, white female in no acute distress. HEENT: Anicteric. Clear sclerae and conjunctivae. Neck: Supple. No JVD. No bruit. Cardiovascular: S1, S2. Normal rate and rhythm. No murmur, rubs, or gallops. Pulmonary: Clear to auscultation bilaterally. GI: Soft, nontender, nondistended. Normoactive bowel sounds. Musculoskeletal: Clubbing, cyanosis, or edema. LABORATORY: Urine culture grew out Escherichia coli sensitive to Zosyn, resistant to Levaquin. Her blood culture grew out Strep agalactiae. White count 4.06, hemoglobin 8.9, hematocrit 28.9, platelets 137,000. Chemistry: Sodium 137, potassium 3.9, chloride 104, bicarb 19, BUN 23, creatinine 1.0, glucose of 278. ASSESSMENT/PLAN: An 86-year-old, white female admitted to the hospital for fever and chills and was found to have Streptococcus agalactiae bacteremia. 1. Streptococcus agalactiae bacteremia. Infectious Disease is following. Dr. Munoz wants to keep her in the hospital until Tuesday due to the bacteremia and unable to put a line in. 2. Escherichia coli urinary tract infection. The patient on Septra and aztreonam currently 2 g every 24 hours for her Streptococcus agalactiae as well. 3. Hypothyroidism. Continue Synthroid. 4. Constipation. The patient has had MiraLAX but says she has not had a bowel movement. Will give the patient a dose of enema tonight. 5. Hypertension. Continue Norvasc. 6. Iron deficiency anemia. Will continue iron sulfate. 7. Deep vein thrombosis prophylaxis. Put the patient on Lovenox.
[2016-11-17] MEDS: COLACE PO SCH (22:44)
[2016-11-18] MEDS: DUONEB (A & A) INH SCH ×5 (03:00→21:37)
[2016-11-18] MEDS: NS 500 ML IV SCH (06:08)
[2016-11-18 07:01] LABS: HEMATOCRIT 28.1 % (37.0-47.0); HEMOGLOBIN 8.7 g/dL (12.0-16.0); MCH 30.6 PG (27-31); MCV 98.9 FL (81-99); MPV 10.8 FL (7.4-10.4); RBC 2.84 XMIL (4.2-5.4)
[2016-11-18 07:14] LABS: CALCIUM 8.4 mg/dL (8.8-10.2); POTASSIUM 4.1 mmol/L (3.5-5.1)
[2016-11-18] MEDS: ROCEPHIN 2 GM/NS 2 GM/50 ML IVPB IV SCH (09:27)
[2016-11-18] MEDS: MIRALAX PO SCH (09:27)
[2016-11-18] MEDS: LOFIBRA PO SCH (09:27)
[2016-11-18] MEDS: FOLIC ACID PO SCH (09:27)
[2016-11-18] MEDS: PERIDEX MT SCH ×2 (09:28→20:10)
[2016-11-18] MEDS: SYNTHROID PO SCH (09:28)
[2016-11-18] MEDS: LOVENOX SUBQ SCH (09:28)
[2016-11-18] MEDS: FERGON PO SCH ×2 (09:28→20:10)
[2016-11-18] MEDS: NORVASC PO SCH (09:28)
[2016-11-18] MEDS: OCUVITE LUTEIN & ZEAXANTHIN PO SCH (10:13)
--- NOTE | 2016-11-18 11:42 | PROGRESS NOTE ---
DATE: 11/18/2016 PRESENT ILLNESS: The patient is being treated for a streptococcal bacteremia thought to arise from an infected Port-A-Cath. Patient also has an Escherichia coli urinary tract infection, and unfortunately she also has a very low IgA level. MEDICATIONS: The patient continues to be on Rocephin in a dose of 2 g IV daily. This is day 2 of treatment with Rocephin. PHYSICAL EXAMINATION: Vital Signs: Temperature is 98 degrees, pulse 72, respirations 16, blood pressure 149/57. General: This is an ill-appearing, elderly female. She is in no acute distress. Lungs: Clear to auscultation. The patient did cough during the exam. Cardiovascular: Regular heart rate. Abdomen: Soft and nontender. LAB AND X-RAY: CBC today shows a white count of 3080, hemoglobin 8.7, and platelet count 146,000. Creatinine is 0.9. GFR is greater than 60. There are no new radiographic studies. ASSESSMENT AND PLAN: The patient is being treated for bacteremia with Rocephin, and also receiving the same antibiotic for her urinary tract infection. Patient had blood cultures drawn today to see if the bacteremia has cleared; if it has, then the patient can have a more lasting IV put in. As mentioned above, there is no replacement for a low IgA level. COMORBIDITIES: The patient's comorbidities include she is very elderly, she has multiple myeloma, and unfortunately she has a low IgA level. cc: Matt Munoz MD
--- NOTE | 2016-11-18 12:27 | PROGRESS NOTE ---
DATE: 11/18/2016 SUBJECTIVE: The patient is feeling okay. No significant complaints. OBJECTIVE: Vital signs: She is afebrile. Vital signs are stable. General: She is alert and oriented x4. No acute distress. Skin: Her left chest incisions are healing appropriately. There is no active drainage from the wounds. The Steri-Strips are intact. No redness is seen. LABORATORY: White blood cell count 3.1, hemoglobin 8.7. Blood cultures were drawn this morning and are pending. ASSESSMENT AND PLAN: This is an 86-year-old female status post removal of an infected chemo port and a history of multiple myeloma. Dr. Munoz and the family have discussed replacing a port once her bacteremia has resolved, potentially before she goes home. We will tentatively plan port placement Tuesday if her blood cultures are negative over the weekend. cc: Luisito Brown MD
--- NOTE | 2016-11-18 13:38 | PROGRESS NOTE ---
DATE: 11/18/2016 SUBJECTIVE: Ms. Bains is an 86-year-old female, who was admitted with profound dyspnea. She has ultimately found to have E. coli UTI and group B strep bacteremia. She is being followed by Dr. Munoz. Her source is her port where she gets infusions for multiple myeloma. The port has ultimately been removed, and she has been on appropriate antibiotic therapy. Overnight, she still has been complaining of her lower back pain and mild shortness of breath, but this is slowly improving. She reports she has not been out of bed since Tuesday. No acute events noted overnight, patient is resting in bed comfortably without distress noted. No events noted by the nursing staff. OBJECTIVE DATA: Vital Signs: Blood pressure is 149/57, heart rate is 72, respiratory rate is 18, O2 saturation 98% on 2 L nasal cannula. General: This is an elderly female, lying in hospital bed. No acute distress. Neurologic: The patient is awake, alert, and oriented. She follows commands without focal deficits. HEENT: Head is atraumatic and normocephalic. Her pupils are equal, round, and reactive to light. Oral mucosa is moist. Trachea is midline. There is no JVD. Chest: Clear to auscultation bilaterally. CARDIOVASCULAR: Regular rate and rhythm. GI: Soft nondistended nontender. Bowel sounds are positive. Extremities: Without edema, clubbing or cyanosis. DIAGNOSTIC DATA: WBC 3.08, hemoglobin 8.7, hematocrit 28.1, platelet count 146, 000. Sodium 138, potassium 4.1, chloride 103, CO2 20, anion gap 15, BUN 20, creatinine 0.9, glucose 103, calcium 8.4, magnesium 1.8. ASSESSMENT AND PLAN: 1. Group B Strep bacteremia: Continue antibiotics per Dr. Matt Munoz' direction. Dr. Brown has taken out her port. He is following. Her new poor will be placed on Tuesday. Repeat cultures have been obtained and are currently pending. 2. Urinary tract infection, Escherichia coli: Continue treatment, this is improving. 3. Multiple myeloma: Stable, followed by Yazmin Trujillo MD. 4. Hypertension: Stable. Continue home medications. 5. Iron deficiency anemia: Stable, continue iron sulfate. 6. DVT prophylaxis with Lovenox. 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 We have consulted PT as well. Dictated by JASVIR Pedro for Emmanuel Pool MD cc: JASVIR Pedro Addendum: I personally evaluated and examined the patient in conjunction to the INSURANCE RATER and agreed with his assessments and plans. We are waiting for culture to clear prior to place a picc line for home abx. JESSICAD
[2016-11-18] MEDS: COLACE PO SCH (20:10)
[2016-11-18] MEDS: OXY IR PO PRN (23:12)
[2016-11-19] MEDS: NS 500 ML IV SCH ×2 (03:06→16:46)
[2016-11-19] MEDS: DUONEB (A & A) INH SCH ×4 (03:18→19:30)
[2016-11-19 06:18] LABS: HEMATOCRIT 27.3 % (37.0-47.0); HEMOGLOBIN 8.4 g/dL (12.0-16.0); MCH 30.5 PG (27-31); MCHC 30.8 g/dL (33-37); MCV 99.3 FL (81-99); MPV 10.6 FL (7.4-10.4); RBC 2.75 XMIL (4.2-5.4)
[2016-11-19 06:47] LABS: CALCIUM 8.6 mg/dL (8.8-10.2); MAGNESIUM 1.8 mg/dL (1.5-2.7)
[2016-11-19] MEDS: ROCEPHIN 2 GM/NS 2 GM/50 ML IVPB IV SCH (07:50)
[2016-11-19] MEDS: LOFIBRA PO SCH (07:59)
[2016-11-19] MEDS: MIRALAX PO SCH (07:59)
[2016-11-19] MEDS: NORVASC PO SCH (07:59)
[2016-11-19] MEDS: FOLIC ACID PO SCH (07:59)
[2016-11-19] MEDS: OCUVITE LUTEIN & ZEAXANTHIN PO SCH (07:59)
[2016-11-19] MEDS: PERIDEX MT SCH ×3 (07:59→23:45)
[2016-11-19] MEDS: SYNTHROID PO SCH (07:59)
[2016-11-19] MEDS: FERGON PO SCH ×3 (07:59→23:44)
[2016-11-19] MEDS: LOVENOX SUBQ SCH (07:59)
--- NOTE | 2016-11-19 11:26 | PROGRESS NOTE ---
DATE: 11/19/2016 PRESENT ILLNESS: The patient is being treated for streptococcal bacteremia which originated from her Port-A-Cath which has been removed. She also has an Escherichia coli urinary tract infection. MEDICATIONS: The patient is receiving a dose of Rocephin of 2 g IV daily. PHYSICAL EXAMINATION: Vital Signs: Temperature is 98.5 degrees, pulse 97, respirations 18, blood pressure 133/59. General: This is a somewhat ill-appearing, elderly female. She is in no acute distress. Lungs: Clear to auscultation. Cardiovascular: The patient's heart rate at times seemed regular and other times I thought it was irregular. Abdomen: Soft and nontender. Chest: The prior Port-A-Cath site on the left chest is not swollen or erythematous. LAB AND X-RAY: There is no new x-ray. The CBC for today shows a white count of 3280, hemoglobin 8.4 and platelet count 168,000. Creatinine is 1.0. GFR is 53. The patient's repeat blood cultures are pending. ASSESSMENT AND PLAN: The patient is being treated for her bacteremia and urinary tract infection. I plan to continue Rocephin. When the patient's repeat blood cultures are shown to be sterile, then she will have her Port-A-Cath re-implanted by Dr. Brown. I will be treating the patient with Rocephin for 2 weeks following the first blood culture that is sterile. COMORBIDITIES: The patient's comorbidities include she is very elderly. She has multiple myeloma and she has a low IgA level, which unfortunately there is not a product we can give to increase the IgA level. cc: Matt Munoz MD
--- NOTE | 2016-11-19 12:49 | PROGRESS NOTE ---
DATE: 11/19/2016 SUBJECTIVE: The patient is doing well. She has no complaint. Her son was at the bedside. All questions were invited and entertained. OBJECTIVE: Vital Signs: Blood pressure 132/59, pulse of 97, respiration 18, temperature 98.5 degrees, saturation of 99% on 3L nasal cannula. General Appearance: Well-developed, well- nourished white female in no acute distress. HEENT: Anicteric. Clear conjunctivae. Neck: Supple. No JVD. No bruit. Cardiovascular: S1 and S2. Normal rate and rhythm. No murmur, rubs, or gallops. Pulmonary: Clear to auscultation bilaterally. Gastrointestinal: Soft, nontender, nondistended. Normoactive bowel sounds. Musculoskeletal: No clubbing, cyanosis, or edema. LABORATORY: White count 3.28, hemoglobin 8.4, hematocrit of 27.3, platelets 168,000. Chemistry: Sodium 137, potassium 4.0, chloride 104, bicarbonate 21, BUN 17, creatinine 1.0, glucose 109. ASSESSMENT AND PLAN: This is an 86-year-old white female admitted to the hospital for fever and chills, and was found to have a Streptococcus agalactiae bacteremia. 1. Streptococcus agalactiae bacteremia. Infectious Disease is following. The plan is to put in a mini port on Tuesday for home antibiotics. Currently, she is getting 2 g of Rocephin daily. 2. Escherichia coli urinary tract infection, also sensitive to ceftriaxone. 3. Hypothyroidism. Continue Synthroid. 4. Iron deficiency anemia. Continue ferrous gluconate twice a day. 5. Hypertension. Continue Norvasc. 6. Deep vein thrombosis prophylaxis. Put the patient on Lovenox.
--- NOTE | 2016-11-19 15:00 | PROGRESS NOTE ---
DATE: 11/19/2016 SUBJECTIVE: Patient states she is feeling better. She did have her port removed. There are plans to place a port on Tuesday for home antibiotics. She is being treated for Streptococcus bacteremia, followed by Dr. Munoz, also Escherichia coli urinary tract infection, receiving antibiotics for that. Her anemia is stable. No evidence of active GI bleed. No reported blood in the stool or black stools. On other discussions with the patient, she did not want any endoscopies done at this time. We have continued to follow along with the patient during her hospital course. She denies complaints today. OBJECTIVE: Vital Signs: Temperature 98.5 degrees, pulse 64, respirations 16, blood pressure 133/59. LABORATORY: Hematology: White blood cells 3.28, hemoglobin 8.4, hematocrit 27.3, MCV 99.3. Chemistry: Sodium 137, potassium 4.0, chloride 104, CO2 of 21, BUN 17, creatinine 1.02. ASSESSMENT: 1. Anemia. 2. History of multiple myeloma, followed by Dr. Yazmin Trujillo. 3. Streptococcus bacteremia, followed by Dr. Munoz. 4. Escherichia coli urinary tract infection, receiving antibiotics. PLAN: Continue supportive care. Continue antibiotics for infections. She has had her port removed and plans to have it replaced next week. Gastroenterology will be available as needed. Dictated by JASVIR Vaughan for Luis Mena MD cc: JASVIR Patino MD
[2016-11-19] MEDS: COLACE PO SCH ×2 (19:55→23:44)
[2016-11-19] MEDS: OXY IR PO PRN (19:57)
[2016-11-20] MEDS: DUONEB (A & A) INH SCH ×4 (03:39→19:28)
[2016-11-20 06:48] LABS: HEMATOCRIT 27.2 % (37.0-47.0); HEMOGLOBIN 8.3 g/dL (12.0-16.0); MCH 30.4 PG (27-31); MCHC 30.5 g/dL (33-37); MCV 99.6 FL (81-99); MPV 10.7 FL (7.4-10.4); RBC 2.73 XMIL (4.2-5.4)
[2016-11-20 07:07] LABS: CALCIUM 8.4 mg/dL (8.8-10.2); POTASSIUM 4.5 mmol/L (3.5-5.1)
[2016-11-20] MEDS: ROCEPHIN 2 GM/NS 2 GM/50 ML IVPB IV SCH (08:21)
[2016-11-20] MEDS: SYNTHROID PO SCH (08:22)
[2016-11-20] MEDS: OCUVITE LUTEIN & ZEAXANTHIN PO SCH (08:22)
[2016-11-20] MEDS: FOLIC ACID PO SCH (08:22)
[2016-11-20] MEDS: NORVASC PO SCH (08:22)
[2016-11-20] MEDS: FERGON PO SCH (08:22)
[2016-11-20] MEDS: LOVENOX SUBQ SCH (08:22)
[2016-11-20] MEDS: LOFIBRA PO SCH (08:22)
[2016-11-20] MEDS: PERIDEX MT SCH (08:22)
[2016-11-20] MEDS: MIRALAX PO SCH (08:23)
[2016-11-20] MEDS ORDERED: FLEET MINERAL OIL ENEMA PR ONE (12:38)
[2016-11-20] MEDS ORDERED: MOVANTIK PO ONE (12:39)
--- NOTE | 2016-11-20 13:27 | PROGRESS NOTE ---
DATE: 11/20/2016 SUBJECTIVE: The patient is doing well. She is sitting up in the chair still complaining of having no bowel movement up to this point. OBJECTIVE: Vital Signs: Blood pressure 127/65, pulse of 72, respirations 20, temperature 98.4 degrees, saturation of 100% on 3 L. General Appearance: Elderly white female in no acute distress HEENT anicteric. Clear conjunctivae. Neck supple. No JVD. No bruit. Cardiovascular: S1, S2. Normal rate and rhythm. No murmur, rubs, or gallops. Pulmonary: Clear to auscultation bilaterally. GI: Soft, nontender, nondistended. Normoactive bowel sounds. Musculoskeletal: No clubbing, cyanosis, or edema. LABORATORY: White count of 3.49, hemoglobin 8.3, hematocrit 27.2, platelets of 183,000. Chemistry: Sodium 139, potassium 4.5, chloride 106. Bicarb 21, BUN 70, creatinine 0.9, glucose 105. ASSESSMENT AND PLAN: This is an 86-year-old white female admitted to the hospital for fever and chills and was found to have bacteremia. 1. Streptococcal bacteremia. She is on Rocephin. Plan for mini port on Tuesday. On home antibiotics. ID is following. 2. Escherichia coli urinary tract infection. Continue ceftriaxone. 3. Hypothyroidism. Continue Synthroid. 4. Constipation. We will start the patient on another enema and will add Movantik. 5. Iron deficiency anemia. Continue ferrous gluconate. 6. Hypertension. Continue Norvasc. 7. Deep vein thrombosis prophylaxis. The patient on Lovenox.
[2016-11-20] MEDS: OXY IR PO PRN ×2 (14:00→21:19)
[2016-11-21] MEDS: DUONEB (A & A) INH SCH ×4 (03:39→19:39)
[2016-11-21] MEDS: COLACE PO SCH ×2 (04:44→21:39)
[2016-11-21] MEDS: PERIDEX MT SCH ×3 (04:44→21:20)
[2016-11-21] MEDS: FERGON PO SCH ×3 (04:44→21:39)
[2016-11-21] MEDS: NS 500 ML IV SCH ×3 (05:58→21:41)
[2016-11-21 06:21] LABS: CALCIUM 8.3 mg/dL (8.8-10.2); POTASSIUM 4.1 mmol/L (3.5-5.1)
[2016-11-21 07:21] LABS: HEMATOCRIT 26.2 % (37.0-47.0); MCH 30.4 PG (27-31); MCHC 30.5 g/dL (33-37); MCV 99.6 FL (81-99); MPV 10.2 FL (7.4-10.4); RBC 2.63 XMIL (4.2-5.4)
[2016-11-21] MEDS: FOLIC ACID PO SCH (10:25)
[2016-11-21] MEDS: OCUVITE LUTEIN & ZEAXANTHIN PO SCH (10:25)
[2016-11-21] MEDS: OXY IR PO PRN ×3 (10:25→23:54)
[2016-11-21] MEDS: LOVENOX SUBQ SCH (10:25)
[2016-11-21] MEDS: MIRALAX PO SCH (10:25)
[2016-11-21] MEDS: NORVASC PO SCH (10:25)
[2016-11-21] MEDS: ROCEPHIN 2 GM/NS 2 GM/50 ML IVPB IV SCH (10:26)
[2016-11-21] MEDS: LOFIBRA PO SCH (10:36)
[2016-11-21] MEDS: SYNTHROID PO SCH (10:37)
--- NOTE | 2016-11-21 13:33 | PROGRESS NOTE ---
DATE: 11/21/2016 SUBJECTIVE: The patient is uncomfortable. She was given enema still having not had a bowel movement yet. OBJECTIVE: Vital signs: Blood pressure is 134/62, pulse of 61, respirations 20, temperature 98.4 degrees, saturations of 99% on 2 L nasal cannula. General appearance: Elderly white female in moderate distress due to abdominal discomfort resulted from the enema. HEENT: Anicteric. Clear conjunctivae. Neck: Supple. No JVD. No bruit. Cardiovascular: S1, S2. Normal rate and rhythm. No murmur, rubs, or gallops. Pulmonary: Clear to auscultation bilaterally. GI: Soft, nontender, nondistended. Normoactive bowel sounds. Musculoskeletal: No clubbing, cyanosis or edema. LABORATORY: Her white count 2.95, hemoglobin 8.0, hematocrit of 26.2 platelets 194,000. Chemistry. Sodium 135, potassium 4.1, chloride 102, bicarb 21, BUN 17, creatinine 0.9, glucose 103. ASSESSMENT AND PLAN: This is an 86-year-old white female admitted to the hospital for streptococcal pneumonia. 1. Streptococcal pneumonia. Will continue Rocephin. Infectious disease is following. The patient going to get a port on Tuesday. Her labs and blood culture have been negative for the past 48 hours. 2. Urinary tract infection Escherichia coli. Continue ceftriaxone as above. 3. Hypothyroidism. Continue Synthroid. 4. Constipation. The patient did not get the enema yesterday as ordered and did not get her Movantik yesterday either. She still has not had a bowel movement for a week. Will get an abdominal x-ray today. The patient appears to be uncomfortable. 5. Iron deficiency anemia. Continue ferrous gluconate. 6. Hypertension. Continue Norvasc. 7. Deep vein thrombosis prophylaxis. The patient on Lovenox. DISPOSITION: The patient needs IV antibiotics per ID recommendation but she will get a port tomorrow, she will be able to go home then.
--- NOTE | 2016-11-21 14:33 | Diag Imaging Result Document ---
PROCEDURE NAME: NISREEN ABDOMEN - 11/21/2016 ABDOMEN SINGLE VIEW: FINDINGS: No bowel obstruction. No organomegaly. There are degenerative changes in the lower lumbar spine. IMPRESSION: No definite abnormality.
[2016-11-22] MEDS: DUONEB (A & A) INH SCH ×4 (03:40→19:31)
[2016-11-22] MEDS: ROCEPHIN 2 GM/NS 2 GM/50 ML IVPB IV SCH (09:06)
[2016-11-22] MEDS ORDERED: HEPARIN ONE (09:44)
[2016-11-22] MEDS ORDERED: MARCAINE 0.25% PF/EPI 1:200,000 ONE (09:44)
[2016-11-22] MEDS ORDERED: NS 250 ML ONE (09:44)
--- NOTE | 2016-11-22 09:50 | PROGRESS NOTE ---
DATE: 11/22/2016 PRESENT ILLNESS: The patient is being treated for a streptococcal bacteremia which is felt to have originated from her Port-A-Cath which has been removed. The patient also has an Escherichia coli urinary tract infection. MEDICATIONS: The patient is receiving Rocephin 2 g IV daily. PHYSICAL EXAMINATION: Vital Signs: Temperature is 98.2 degrees, pulse 65, respirations 18, blood pressure 141/54. General: This is a somewhat ill-appearing, elderly female who is in no acute distress. Lungs: Clear to auscultation. Cardiovascular: Regular heart rate. Abdomen: Soft and nontender. LAB AND X-RAY: There is no new x-ray today. The patient's CBC shows a white count of 2950, hemoglobin 8, and platelet count 195,000. Creatinine is 0.9. GFR is 60. Repeat blood cultures are sterile. It has been day 4 after the first negative blood culture. Since the blood cultures were drawn on the , this would be day 4 of treatment with Rocephin where there is negative blood cultures involved. ASSESSMENT AND PLAN: The patient now has been taken to go ahead and put in another Port-A-Cath. My plan is to continue her antibiotics for her bacteremia and urinary tract infection at home. This is day 6 of treatment with Rocephin. My plan would be to treat her with a total of 2 weeks of treatment so she will need a little over another week of intravenous antibiotic. COMORBIDITIES: Include she is very elderly, she has multiple myeloma. Unfortunately, she has a low IgA level which will predispose her to infection but we do not have a replacement product for it. The patient does have multiple myeloma. cc: Matt Munoz MD
[2016-11-22] MEDS ORDERED: DIPRIVAN 1% ONE (10:52)
[2016-11-22] MEDS ORDERED: ZOFRAN ONE (11:06)
[2016-11-22] MEDS ORDERED: XYLOCAINE-MPF 2% ONE (11:06)
[2016-11-22] MEDS ORDERED: FLEET MINERAL OIL ENEMA PR ONE (11:18)
[2016-11-22] MEDS ORDERED: DULCOLAX PR ONE (11:28)
[2016-11-22] MEDS ORDERED: GOLYTELY PO ONE (11:28)
[2016-11-22] MEDS ORDERED: GLYCERIN ADULT PR ONE (11:28)
[2016-11-22] MEDS ORDERED: BLISTEX MEDICATED BERRY LIP BALM TOP PRN (11:53)
--- NOTE | 2016-11-22 12:00 | Diag Imaging Result Document ---
PROCEDURE NAME: CHEST-PORTABLE - 11/22/2016 AP PORTABLE CHEST AT 1105 HOURS: FINDINGS: The inspiration is suboptimal. The heart size is enlarged. There is a right internal jugular Port-A-Cath with its tip in the right atrium. There is no evidence of pneumothorax. IMPRESSION: Poor placement as described. Poor inspiration.
[2016-11-22] MEDS: FOLIC ACID PO SCH (12:17)
[2016-11-22] MEDS: NORVASC PO SCH (12:17)
[2016-11-22] MEDS: OCUVITE LUTEIN & ZEAXANTHIN PO SCH (12:17)
[2016-11-22] MEDS: LOFIBRA PO SCH (12:17)
[2016-11-22] MEDS: MIRALAX PO SCH (12:17)
[2016-11-22] MEDS: FERGON PO SCH ×2 (12:17→21:04)
[2016-11-22] MEDS: LOVENOX SUBQ SCH (12:18)
[2016-11-22] MEDS: SYNTHROID PO SCH (12:18)
[2016-11-22] MEDS: PERIDEX MT SCH ×2 (12:18→21:04)
[2016-11-22] MEDS: NS 500 ML IV SCH ×2 (12:18→18:27)
--- NOTE | 2016-11-22 12:29 | PROGRESS NOTE ---
DATE: 11/22/2016 SUBJECTIVE: The patient states she has not had a bowel movement since last Tuesday. She was having her Port-A-Cath replaced today. She is being treated for bacteremia and Escherichia coli UTI following with Dr. Munoz. The patient received an enema Movantik yesterday with no results. PHYSICAL EXAMINATION: Vital Signs: Temperature 98.2 degrees, pulse 67, respirations 23, blood pressure 141/54. General: The patient is awake, alert, in no acute distress. Respiratory: Lung sounds essentially clear. Abdomen: Soft. She does have positive bowel sounds. LABORATORY: Hematology: White count 2.95, hemoglobin 8.0, hematocrit 26.2, MCV 99.6. Chemistry: Sodium 135, potassium 4.1, chloride 103, CO2 of 21. BUN 17, creatinine 0.9. ASSESSMENT AND PLAN: 1. Anemia. Continue to follow. She has not had any evidence of active bleeding. 2. Bacteremia, Escherichia coli urinary tract infection, continuing antibiotics. She is having her port replaced today. 3. Obstipation. No results despite enema and Movantik. We will give her a glycerin suppository followed by Dulcolax suppository and have her drink 1-2 L of GoLYTELY until she starts to move her bowels, and then she will need to be on something on a daily basis until her symptoms improve. We will continue to follow. I have discussed this case with Dr. Mena. I have also discussed this case with Dr. Baeza. Dictated by JASVIR Vaughan for Luis Mena MD cc: JASVIR Patino MD
--- NOTE | 2016-11-22 12:51 | OPERATIVE NOTE ---
PROCEDURE DATE: 11/22/2016 PREOPERATIVE DIAGNOSIS: Multiple myeloma. POSTOPERATIVE DIAGNOSIS: Multiple myeloma. PROCEDURE: Insertion of Port-a-Cath with fluoroscopic and ultrasound guidance. SURGEON: Luisito Brown MD ANESTHESIA: General. ESTIMATED BLOOD LOSS: 3 mL. COMPLICATIONS: None apparent. SPECIMENS: None. FINDINGS: The right internal jugular vein was visualized with the Site-Rite ultrasound. It was found to be compressible and patent and without thrombus. The fluoroscopy was used to confirmed the placement of the wire into the right atrium, followed by the tip of the catheter positioned to the superior vena cava right atrial junction. TECHNIQUE: She was brought to the operating room and placed supine on the table. General anesthesia was induced. She was prepped and draped in sterile fashion, 0.25% Marcaine with epinephrine was used to anesthetize the skin below the right clavicle. An incision was made with the knife and carried down through the subcutaneous tissues with cautery. A pocket was created anterior to the pectoral fascia with cautery and blunt finger dissection. She was then placed in Trendelenburg. The right internal jugular vein was found with the ultrasound. The skin over the vein was anesthetized with Marcaine. A small incision was made in the skin with 11 blade. The vein was then accessed under ultrasound guidance with 1 stick. The wire passed through the needle into the vein easily. The wire was confirmed to be in the right atrium with fluoroscopy. The wire was fixed to the drape. She was placed back in supine position. I anesthetized the subcutaneous tissues between our neck and subclavicular incision and tunneled the catheter subcutaneously from the lower incision out through the neck incision. The dilator and sheath were then passed over the wire under fluoroscopy. The wire and dilator were removed. The catheter was passed into the sheath. The sheath was removed. The tip of the catheter was positioned to the appropriate junction with fluoroscopic guidance. The catheter was cut to size and fixed to the port. The port was anchored to the fascia with 2-0 Surgipro at 2 o'clock, 6 o'clock, and 10 o'clock. The port was accessed. It koby back blood easily. It was flushed with heparin saline easily. The incisions were closed with interrupted subcutaneous 3-0 Polysorb and a running 4-0 subcuticular Monocryl and Steri-Strips. There were no apparent complications. She was awakened in stable condition and transferred to the recovery room where a chest x-ray was ordered. cc: Luisito Brown MD
--- NOTE | 2016-11-22 15:40 | PROGRESS NOTE ---
DATE: 11/22/2016 SUBJECTIVE: This patient states that she is feeling better, she just came back from surgery. They placed a Port-A-Cath on the right side of her chest. She has been 9 days without a bowel movement and we have been trying with enema and stool softener but nothing has been working so far. Gastroenterology is on board. OBJECTIVE: Vital Signs: Temperature 98.2, pulse 66, respiratory rate 24, blood pressure 127/65, O2 saturation 98 on room air. HEENT: Head normocephalic. No trauma. PERRLA. Neck: Supple. No JVD. No masses. Central trachea. Chest: Decreased breath sounds at the bases. New right upper Port-A-Cath. Abdomen: Soft, nontender, nondistended. No hepatosplenomegaly. Extremities: No edema. No clubbing. No cyanosis. Neurological: The patient is alert and oriented x3. No focal deficits. LABORATORY: WBC 2.9, hemoglobin 8, hematocrit 26.2, platelets 195. Sodium 136, potassium 4.1, chloride 103, bicarbonate 21, BUN 17, creatinine 0.9, glucose 103, calcium 8.3. ASSESSMENT AND PLAN: 1. Streptococcal pneumonia. Continue with Rocephin. Infectious Disease Department is following. This patient had a Port-A-Cath today. Her blood culture has been negative for the past 4 days. 2. Urinary tract infection. Continue with ceftriaxone as above. 3. Hypothyroidism. Continue with Synthroid. 4. Constipation. So far it has been 9 days without a bowel movement, gastroenterology department is working on this patient. Will continue following their recommendations. 5. Iron deficiency anemia. Continue with ferrous gluconate. 6. Hypertension. Continue with Norvasc. 7. Multiple myeloma, oncology is on board. Continue with the same management. 8. Deep vein thrombosis prophylaxis. Continue with the same treatment. cc: Dion Howard MD
[2016-11-22] MEDS: MORPHINE IV PRN (16:02)
[2016-11-22] MEDS: COLACE PO SCH (21:04)
[2016-11-22] MEDS: OXY IR PO PRN (21:04)
[2016-11-23] MEDS: DUONEB (A & A) INH SCH ×3 (03:21→09:30)
[2016-11-23 06:36] LABS: MANUAL DIFF NEEDED? NO
[2016-11-23 06:47] LABS: BASO% 0.7 % (0.0-0.8); EOS# 0.19 X1000 (0.0-0.7); HEMATOCRIT 25.4 % (37.0-47.0); HEMOGLOBIN 7.7 g/dL (12.0-16.0); IMM GRAN# 0.06 X1000 (0.0-0.04); IMM GRAN% 2.2 % (0.0-0.5); LYMPH# 0.37 X1000 (1.2-3.4); LYMPH% 13.7 % (20.5-51.1); MCH 29.8 PG (27-31); MCHC 30.3 g/dL (33-37); MCV 98.4 FL (81-99); MONO% 7.4 % (1.7-9.3); MPV 9.8 FL (7.4-10.4); PLT 212 X1000 (130-400); RBC 2.58 XMIL (4.2-5.4)
[2016-11-23 06:56] LABS: CALCIUM 8.5 mg/dL (8.8-10.2); POTASSIUM 4.3 mmol/L (3.5-5.1)
[2016-11-23] MEDS: OCUVITE LUTEIN & ZEAXANTHIN PO SCH (08:44)
[2016-11-23] MEDS: LOVENOX SUBQ SCH (08:44)
[2016-11-23] MEDS: PERIDEX MT SCH (08:44)
[2016-11-23] MEDS: SYNTHROID PO SCH (08:44)
[2016-11-23] MEDS: NORVASC PO SCH (08:45)
[2016-11-23] MEDS: MIRALAX PO SCH (08:45)
[2016-11-23] MEDS: FOLIC ACID PO SCH (08:45)
[2016-11-23] MEDS: LOFIBRA PO SCH (08:45)
[2016-11-23] MEDS: FERGON PO SCH (08:45)
[2016-11-23] MEDS: ROCEPHIN 2 GM/NS 2 GM/50 ML IVPB IV SCH (08:45)
[2016-11-23] MEDS: NS 500 ML IV SCH ×2 (13:31→13:32)
--- NOTE | 2016-11-23 13:59 | PROGRESS NOTE ---
DATE: 11/23/2016 PRESENT ILLNESS: Patient is being treated for streptococcal bacteremia which originated from her Port-A-Cath which has subsequently been removed. Another Port-A-Cath is in place. The patient also has an E. coli urinary tract infection. MEDICATIONS: Patient currently is receiving Rocephin 2 g IV daily. PHYSICAL EXAMINATION: Vital Signs: Temperature is 98 degrees, pulse 52, respirations 18, blood pressure 143/69. General: This is a chronically ill-appearing, elderly female. She is in no acute distress. Lungs: Clear to auscultation. Cardiovascular: Heart rate is regular. Abdomen: Soft and nontender. Chest: The patient's Port-A-Cath site is not erythematous and swollen and the site from which the Port-A-Cath was removed likewise is not erythematous or swollen. LAB AND X-RAY: The patient's CBC shows a white count of 2700, hemoglobin 7.7, platelet count 212,000. There is no new radiographic study for today. ASSESSMENT AND PLAN: The patient very much wants to go home and she and family would much rather have antibiotics p.o. than IV. Therefore I have printed up in the computer prescription for Keflex 500 mg p.o. every 8 hours for 2 weeks to complete her treatment course for her bacteremia and urinary tract infection. COMORBIDITIES: She is elderly. She has multiple myeloma and unfortunately she has a low IgA level for which we do not have a replacement product. I am available to see the patient on a p.r.n. basis. cc: Matt Munoz MD
[2016-11-23] MEDS: OXY IR PO PRN (15:18)
[2016-11-23 18:28] VITALS: BP 140/50
--- NOTE | 2016-11-24 04:59 | DISCHARGE SUMMARY ---
ADMISSION DATE: 11/14/2016 DISCHARGE DATE: 11/23/2016 CONSULTATIONS: 1. Dr. Trujillo with hematology/oncology. 2. Dr. Matt Munoz with infectious disease. 3. Dr. Mena with gastroenterology. PERTINENT PROCEDURES: 1. Insertion of a Port-A-Cath, performed by Dr. Luisito Brown. 2. Abdominal x-ray showed no definite abnormality. 3. Excision of a Port-A-Cath, performed by Dr. Luisito Brown. 4. Lumbar spine CT. Showed grossly stable lumbar spondylosis. No acute findings. 5. Bilateral venous Doppler showed no deep or superficial venous thrombosis. 6. Echocardiogram. Moderate pulmonary hypertension. Estimated to be in the range of 72/22 mmHg. An EF of 60-65%. 7. Chest CT showed cardiomegaly. DISCHARGE DIAGNOSIS: 1. Streptococcal pneumonia. Patient being discharged on p.o. Keflex. 2. Urinary tract infection. Continue with p.o. antibiotics. 3. Hypothyroidism. Continue with Synthroid. 4. Constipation. Continue with bowel regimen. Followed by GI. 5. Iron deficiency anemia. Continue with supplements. 6. Hypertension. Continue with Norvasc. 7. Multiple myeloma, followed by Dr. Trujillo. HOSPITAL COURSE: Ms. Bains is an 86-year-old female, with a past medical history of multiple myeloma, getting treatment intermittently with Dr. Trujillo, paroxysmal atrial fibrillation, status post ablation, not on any anticoagulation due to concern of bleeding risk, with current diagnosis of pneumonia, hypothyroidism, hypertension, and chronic pain. Patient came to the ED for evaluation. The patient started complaining of shortness of breath. She could not get her words out. She just did not feel comfortable and was just overall very ill-appearing. Workup in the ED revealed a BUN and creatinine of 40 and 1.3. Clinically, the patient appeared dry, but her BNP was elevated. Hemoglobin 10 and hematocrit 31, platelets of 126,000. Her coagulations were negative, including a negative D-dimer. Chest x-ray felt to be overall negative as well. COPD and cardiomegaly, but nothing much else. The patient underwent a CT of the chest that showed no pneumonia and no pneumothorax, cardiomegaly, mild prominence of the visualized portion of the spleen. Patient's blood cultures grew out a Gram positive bacteremia. They felt that the source may be the patient's Port-A-Cath, as well as her Klebsiella UTI. Patient was started on IV antibiotics. Dr. Luisito Brown did take the port out. All of her other diagnostic studies were basically negative. She underwent a new placement of a Port-A-Cath after negative blood cultures with Dr. Luisito Brown on 11/22/2016. She also had some complaints of constipation. GI was consulted. No results despite enema, Movantik, glycerin suppositories, Dulcolax, and drinking 1-2 L of GoLYTELY. The patient has had 3 bowel movements on 11/22/2016 in the afternoon and evening hours. She will also need to be on a daily stool softener for the patient's streptococcal bacteremia. She will be going home on an p.o. Keflex, as per Dr. Matt Munoz. Clinically, the patient has improved. She is appropriate for discharge home today. VITAL SIGNS: Temperature 98 degrees, heart rate 52, respirations 18, blood pressure 143/69, O2 of 98%. DISCHARGE DIET: GI soft. DISCHARGE MEDICATIONS: 1. Norvasc 5 mg p.o. daily. 2. Keflex 500 mg p.o. q.8 hours for 40 doses. 3. Stool softener 300 mg p.o. at bedtime. 4. FreshKote 15 mL both eyes as directed. 5. Fenofibrate 160 mg p.o. daily. 6. Ferrous gluconate 240 mg p.o. b.i.d. 7. Folic acid 400 mg daily. 8. Lasix 40 mg p.o. daily. 9. Atrovent inhaler, inhaled daily. 10. Synthroid 150 mcg p.o. daily. 11. Cozaar 50 mg p.o. daily. 12. Percocet 5 mg p.o. q.6 hours p.r.n. 13. MiraLAX 17 g p.o. daily. 14. Micro-K 20 mEq p.o. daily. 15. Spiriva 18 mcg inhaled daily. 16. Preservision AREDS soft gel 1 each p.o. daily. 17. Vitamin B complex 1 each p.o. daily. FOLLOWUP: The patient is being discharged home with p.o. antibiotics. She can continue to follow up with her primary care physician, Dr. Gloria Soliz, as well as Dr. Mena and Dr. Trujillo to continue her intermittent treatments for her multiple myeloma. She is to continue a bowel regimen for her constipation, and intake plenty of fluids. Patient to return to the ED for any worsening of symptoms. DISCHARGE TIME: Greater than 30 minutes. Dictated by JASVIR Mendez for Dion Howard MD cc: Dion Howard MD
--- NOTE | 2016-11-30 03:03 | PROVIDER DOCUMENTATION ---
This chart was entered by Cathy Banegas Scribe, acting as scribe for Rico Gonsalez MD. HPI-Fever - General Chief Complaint: Shortness of Breath Stated Complaint: sob Time Seen by Provider: 11/14/16 10:20 Source: patient Allergies/Adverse Reactions: Patient Allergies Allergy/AdvReac Type Severity Reaction Status Date / Time acetaminophen Allergy Mild rash/hives Verified 11/14/16 11:05 [From Lorcet 10/650] hydrocodone bitartrate * Allergy Mild rash/hives Verified 11/14/16 11:05 [From Lorcet 10650] adhesive Allergy HIVES Verified 11/14/16 11:05 silver * AdvReac Intermediate HIVES Verified 11/14/16 11:05 [From Tegaderm AG Mesh] Home Medications: Home Medication List Medication Instructions Recorded Confirmed Last Taken Type Folic Acid 400 gm MC DAILY 09/01/12 11/14/16 11/14/16 History Furosemide 40 mg PO DAILY 09/01/12 11/14/16 11/14/16 History Vitamin B Complex 1 each PO DAILY 09/01/12 07/27/16 11/14/16 History Fenofibrate 160 mg PO DAILY 03/07/16 11/14/16 11/14/16 History Ferrous Gluconate [Iron] 240 mg PO BID 03/07/16 11/14/16 11/14/16 History Losartan Potassium [Cozaar] 50 mg PO DAILY 03/07/16 11/14/16 11/14/16 History Potassium Chloride E.r. [Micro-K] 20 meq PO DAILY 03/07/16 11/14/16 11/14/16 History Vit A/Vit C/Vit E/Zinc/Copper 1 each PO DAILY 03/07/16 11/14/16 11/14/16 History [Preservision Areds Softgel] Amlodipine Besylate 5 mg PO DAILY 03/24/16 11/14/16 11/14/16 History Docusate Sodium [Stool Softener] 300 mg PO QHS 07/27/16 11/14/16 1 Day Ago History Eye Lubricant Combination No.1 15 ml OP DIRECTED 07/27/16 11/14/16 Unknown History [Freshkote] Ipratropium [place] [Atrovent Hfa] 17 puff IH DIRECTED 07/27/16 11/14/16 1 Day Ago History Levothyroxine [Synthroid] 150 microgm PO DAILY 07/27/16 11/14/16 11/14/16 History Tiotropium [place] Inhaler 18 mcg IH DAILY 07/27/16 11/14/16 11/14/16 History [Spiriva] Cephalexin [Keflex] 500 mg PO Q8H #40 capsule 11/23/16 Unknown Rx Oxycodone HCl 5 mg PO Q8HR PRN #30 tablet 11/23/16 Unknown Rx Polyethylene Glycol 3350 [Miralax] 17 gm PO DAILY PRN #30 11/23/16 11/14/16 1 Day Ago Rx - History of Present Illness-Fever Nature of Presenting Problem: Pt is a 86 yof who came to the ED with a cc of fever and weakness. Pt called her daughter this morning saying she was "Deathly sick". Pt daughter arrived at the house and she reports the the pt was shaking and was warm to the touch. The pt is currently on chemo for multiple myeloma, shes been on chemo for 10 years. Pt denies N/V, chest pain, diarrhea. Fever Severity/Quality: reports: low grade Onset/Duration: reports: this morning Timing: reports: still present Context: reports: cancer-chemotherapy Recent Illness?: reports: none Cognitive Baseline: alert, oriented x3 Associated Symptoms: reports: fever/chills, weakness. denies: vomiting Recently seen or treated by another doctor?: No Review of Systems - Adult - REVIEW OF SYSTEMS - ADULT Constitutional: reports: chills, fever. denies: night sweats, weight gain Eyes: reports: no symptoms reported Ears, Nose, Mouth & Throat: denies: sinus problem, mouth/dental pain Cardiovascular: denies: heart murmur, orthopnea Respiratory: reports: no symptoms reported Gastrointestinal: denies: diarrhea, nausea, vomiting Genitourinary: reports: no symptoms reported Musculoskeletal: reports: no symptoms reported Integumentary: reports: no symptoms reported Neurological: reports: no symptoms reported Psychiatric: reports: no symptoms reported Endocrine: reports: no symptoms reported Hematologic/Lymphatic: reports: no symptoms reported Allergic/Immunologic: reports: no symptoms reported All Other Systems: Reviewed and Negative Past History - Adult - PAST MEDICAL HISTORY-ADULT Review of Records: reports: Old Records Reviewed, Nursing Assessment Review Cardiovascular: reports: A-Fib (with cardiac ablation), HTN, hyperlipidemia Musculoskeletal: reports: osteoporosis Endocrine/Immune: reports: thyroid disorder Other Conditions: reports: other cancer (multiple myloma), cataract/glaucoma - PRIOR SURGERIES/PROCEDURES Surgical/Procedure History: reports: hysterectomy, indwelling device (port), tonsillectomy, orthopedic (extremity) (feet), other (parathyroid, cataract removal) - IMMUNIZATION STATUS Childhood Immunizations: See Nurse Assessment Flu Vaccine: See Nurse Assessment Physical Exam-General - CONSTITUTIONAL General Appearance: alert, mild distress, cachetic - EYES Eyes: pink conjunctivae, FUN - HEAD, EARS, NOSE, MOUTH & THROAT HENMT: normocephalic/atraumatic, moist mucous membranes - NECK Neck: non-tender - RESPIRATORY Respiratory: chest non-tender, lungs clear - CARDIOVASCULAR Cardiovascular: tachycardia - GASTROINTESTINAL (ABDOMEN) Abdominal Exam: normal bowel sounds, non tender - LYMPHATIC Lymphatic: no adenopathy - MUSCULOSKELETAL Back Exam: normal inspection, no CVA tenderness Extremity: normal range of motion, non-tender - SKIN Integumentary: warm/dry - NEUROLOGIC Neurologic: grossly normal - PSYCHIATRIC Psych/Mental Status: normal mood/affect, normal thought content, normal thought process, oriented x 3 Progress - PLAN OF CARE/RESULTS Progress/Plan/Lab Results: Orders Category Date Time Status Admit - [facility] Routine AdmDCTranf 11/14/16 13:11 Ordered Cardiac Monitoring DIRECTED Care 11/14/16 10:21 Completed Cardiac Monitoring DIRECTED Care 11/14/16 10:55 Completed Van Cath Insertion ORDERED Care 11/14/16 13:03 Completed IV Insertion ORDERED Care 11/14/16 10:55 Completed Notify MD of + Sepsis Screen NOW Care 11/14/16 10:55 Completed Oxygen Therapy- ED Nursing DIRECTED Care 11/14/16 10:21 Completed Saline Loc NOW Care 11/14/16 10:21 Completed CHEST-1 VIEW [RAD] Stat Exams 11/14/16 10:30 Completed BLOOD CULTURE [BLDCUL] Stat Lab 11/14/16 10:50 Completed CBC WITH ELECTRONIC DIFF [HEME] Stat Lab 11/14/16 10:48 Completed CK PROFILE [SP CHEM] Stat Lab 11/14/16 10:48 Completed COMPREHENSIVE METABOLIC PANEL [CHEM] Stat Lab 11/14/16 10:48 Completed D-DIMER [CHEM] Stat Lab 11/14/16 10:48 Completed GRAM STAIN [BLDCUL] Stat Lab 11/14/16 10:50 Completed GRAM STAIN [BLDCUL] Stat Lab 11/14/16 11:12 Completed LACTATE, PLASMA [CHEM] Stat Lab 11/14/16 10:28 Completed MAGNESIUM [CHEM] Stat Lab 11/14/16 10:48 Completed PRO B-NATRIURETIC PEPTIDE Stat Lab 11/14/16 10:48 Completed PROTIME WITH INR [COAG] Stat Lab 11/14/16 10:48 Completed PTT [COAG] Stat Lab 11/14/16 10:48 Completed TROPONIN T Stat Lab 11/14/16 10:48 Completed 0.9% Sodium Chloride Inj [Ns] 1,000 ml Med 11/14/16 11:40 Discontinued IV 999 mls/hr Aspirin Med 11/14/16 10:21 Discontinued 325 mg PO STAT STA Furosemide [Lasix] Med 11/14/16 12:07 Discontinued 60 mg IV NOW ONE Transfer/Admit Order [TRANSFER] Routine Transfer 11/14/16 13:09 Completed Result Diagrams: 11/23/16 06:10 11/23/16 06:10 - EKG 1 Time of EKG reading by physician:: 10:24 EKG Read and Signed by:: Rico Gonsalez EKG Interpretation (*Must complete 3 of following elements*): Abnormal Rate: 108 (sinus tachycardia w/ 1st degree AV block with premature supraventricular complexes and w/ occasional premature ventricular complexes; RSR or QR pattern in V1 suggests rught ventricular conduction delay; ST and T wave abnormality, consider inferior ischemia; ST and t wave abnormality, consider anterolateral ischemia) Departure - Departure Time of Disposition Decision: 03:02 DIAGNOSIS: Sepsis Disposition: ADMITTED INPATIENT 09 Certified Medical Emergency: Emergent Condition: Stable - Critical Care Note This patient required my direct & personal management of CC.: Yes Attestation - Physician/ KIERRA Attestation The physician spent face to face time with patient:: Yes Advanced Practice Provider documentation review:: The physician spent face to face time with this patient and agrees with all MLP documentation, treatment, and medical decision making by the MLP. See provider notes for further information. This chart was documented by the indicated scribe, (Cathy Banegas Scribe) and accurately reflects the services I performed and decisions made by me, Rico Gonsalez MD, as attested by the provider's signature.
== END 2016-11-23 19:45 | disposition home health service (06) ==
LOC: ED 10:14 → SUATTDRO 13:28 → 4N 13:28
PROVIDERS: ATTEND Internal Medicine